=== PATIENT | male | born 1965 | race African-American/Black ===

== ENCOUNTER 2017-05-07 21:13 | Emergency (ER) | payer BC ==
[~2017-05-07] VITALS: Ht 165.1 cm; Wt 71.0 kg
[2017-05-07 21:17] VITALS: BP 134/83; PULSE 84; RESP 16; TEMP 98.8; O2SAT 99
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
== END 2017-05-07 22:23 | disposition home or self-care (01) ==
LOC: NEPK 21:13
DX: S01.81XA Laceration without foreign body of other part of head, initial encounter (principal); F17.210 Nicotine dependence, cigarettes, uncomplicated; W22.8XXA Striking against or struck by other objects, initial encounter
CPT/HCPCS: 12011